=== PATIENT | male | born 1975 | race African-American/Black ===

== ENCOUNTER 2018-09-08 18:46 | Emergency (ER) | payer SELFPAY ==
[~2018-09-08] VITALS: Ht 185.4 cm; Wt 79.4 kg
[2018-09-08 18:46] VITALS: BP 137/112
[2018-09-08] MEDS ORDERED: IBUPROFEN 600 MG TABLET PO ONE (20:18)
[2018-09-08] MEDS: IBUPROFEN 600 MG TABLET PO ONE (20:20)
== END 2018-09-08 21:12 | disposition home or self-care (01) ==
LOC: ER 18:50
DX: S63.591A Other specified sprain of right wrist, initial encounter (principal); F20.9 Schizophrenia, unspecified; W22.8XXA Striking against or struck by other objects, initial encounter; Y93.89 Activity, other specified; Y92.89 Other specified places as the place of occurrence of the external cause; Y99.8 Other external cause status
CPT/HCPCS: 29125; 73110; 99283; A4606

== ENCOUNTER 2019-11-14 00:13 | Emergency (ER) | payer MEDICAID, OTHER ==
[~2019-11-14] VITALS: Ht 185.4 cm; Wt 83.9 kg
[2019-11-14 00:25] VITALS: BP 109/75
--- NOTE | 2019-11-14 00:26 | NUR ---
PT AAOX4. [employer] AND [employer] IN CUSTODY FOR C/O R SHOULDER PAIN. IN CUSTODY FOR GRAND THEFT AUTO. ON MONITOR AND PULSE OX. VSS.
--- NOTE | 2019-11-14 00:30 | NUR ---
XRAY AT BEDSIDE
--- NOTE | 2019-11-14 00:57 | NUR ---
Patient discharged to home in stable condition. Written and verbal after care instructions given. Patient verbalizes understanding of instruction. Pt ambulated with a steady gait. In custody.
== END 2019-11-14 00:59 ==
LOC: ER 00:14
DX: M25.511 Pain in right shoulder (principal); F20.9 Schizophrenia, unspecified
CPT/HCPCS: 73030-TC